=== PATIENT | female | born 1990 | race Hispanic/Latino ===

== ENCOUNTER 2020-10-12 13:41 | Emergency (ER) | payer OTHER ==
--- NOTE | 2020-10-12 15:00 | Emergency Department Report ---
ED General Adult HPI - General Chief complaint: Headache Stated complaint: HEADACHE, BACK PAIN, LEG PAIN Time Seen by Provider: 10/12/20 14:52 Source: patient Mode of arrival: Ambulatory Limitations: No Limitations - History of Present Illness Initial comments: Patient is a 30-year-old female presents emergency room complaints of a right temporal headache that began a week ago. She has associated nausea and sensitivity to light and sounds. She states that she has a history of migraines and this feels similar to previous migraines. She states she is taking ibuprofen and Tylenol with some relief. She does not currently have a primary care provider or neurologist. She states that migraines run in her family. She states that she is also been having lower back pain that radiates to her bilateral legs that began yesterday evening. She denies any fall or injury. She denies any vomiting, fever, diarrhea, abdominal pain, urinary symptoms, num bness, weakness, bowel or bladder incontinence, vision changes, speech disturbance, gait disturbance. She is ambulatory without difficulty. Past medical history of migraines, epilepsy, asthma, bronchitis, arrhythmia. Allergy to Keflex. She states her last menstrual cycle was the end of last month. - Related Data Previous Rx's Medication Instructions Recorded Last Taken Type Butalb/Acetaminophen/Caffeine 1 cap PO Q8HR PRN #12 cap 10/12/20 Unknown Rx [Fioricet 50-300-40 mg CAP] Fluconazole [Diflucan TAB] 100 mg PO QDAY 1 Days #1 tablet 10/12/20 Unknown Rx Nitrofurantoin [place]/M-Cryst 100 mg PO BID 5 Days #10 capsule 10/12/20 Unknown Rx [Macrobid CAP] methOCARBAMOL [Robaxin TAB] 500 mg PO BID PRN #14 tab 10/12/20 Unknown Rx Allergies Allergy/AdvReac Type Severity Reaction Status Date / Time cephalexin [From Keflex] AdvReac Angioedema Verified 10/12/20 14:25 ED Review of Systems ROS: Stated complaint: HEADACHE, BACK PAIN, LEG PAIN Other details as noted in HPI Comment: All other systems reviewed and negative ED Past Medical Hx - Past Medical History Hx Headaches / Migraines: Yes Hx Seizures: Yes Hx Asthma: Yes Additional medical history: bronchitis, arrythmias - Surgical History Additional Surgical History: l tube removed - Social History Smoking Status: Current Every Day Smoker Substance Use Type: None - Medications Home Medications: Home Medications Medication Instructions Recorded Confirmed Last Taken Type Butalb/Acetaminophen/Caffeine 1 cap PO Q8HR PRN #12 cap 10/12/20 Unknown Rx [Fioricet 50-300-40 mg CAP] Fluconazole [Diflucan TAB] 100 mg PO QDAY 1 Days #1 tablet 10/12/20 Unknown Rx Nitrofurantoin [place]/M-Cryst 100 mg PO BID 5 Days #10 capsule 10/12/20 Unknown Rx [Macrobid CAP] methOCARBAMOL [Robaxin TAB] 500 mg PO BID PRN #14 tab 10/12/20 Unknown Rx ED Physical Exam - General Limitations: No Limitations General appearance: alert, in no apparent distress - Head Head exam: Present: atraumatic, normocephalic - Eye Eye exam: Present: normal appearance, PERRL, EOMI. Absent: scleral icterus, conjunctival injection, nystagmus, periorbital swelling, periorbital tenderness - ENT ENT exam: Present: mucous membranes moist - Neck Neck exam: Present: normal inspection, full ROM. Absent: tenderness - Respiratory Respiratory exam: Present: normal lung sounds bilaterally. Absent: respiratory distress, wheezes, rales, rhonchi, stridor, chest wall tenderness, accessory muscle use, decreased breath sounds, prolonged expiratory - Cardiovascular Cardiovascular Exam: Present: regular rate, normal rhythm, normal heart sounds. Absent: systolic murmur, diastolic murmur, rubs, gallop - Back Exam Back exam: Present: normal inspection, full ROM. Absent: CVA tenderness (R), CVA tenderness (L), paraspinal tenderness, vertebral tenderness - Neurological Exam Neurological exam: Present: alert, oriented X3, CN II-XII intact, normal gait. Absent: motor sensory deficit - Expanded Neurological Exam Expanded Patient oriented to: Present: person, place, time Speech: Present: fluid speech Cranial nerves: EOM's Intact: Normal, Gag Reflex: Normal, Tongue Deviation: Normal, Facial Sensation: Normal Cerebellar function: Finger to Nose: Normal, Heel to Hurtado: Normal, Romberg: Normal Sensory exam: Upper Extremity Light Touch: Normal, Upper Extremity Pin Prick: Normal, Upper Extremity Temperature: Normal, UE 2 Point Discrimination: Normal, Lower Extremity Light Touch: Normal, Lower Extremity Pin Prick: Normal, Lower Extremity Temperature: Normal, LE 2 Point Discrimination: Normal Motor strength exam: RUE: 5, LUE: 5, RLE: 5, LLE: 5 Best Eye Response ([place]): (4) open spontaneously Best Motor Response (Radha): (6) obeys commands Best Verbal Response (Radha): (5) oriented [place] Total: 15 - Psychiatric Psychiatric exam: Present: normal affect, normal mood - Skin Skin exam: Present: warm, dry, intact ED Course Vital Signs 10/12/20 10/12/20 10/12/20 14:22 16:39 17:39 Temperature 98.4 F Pulse Rate 70 Respiratory 18 18 18 Rate Blood Pressure 103/62 Blood Pressure [Right] O2 Sat by Pulse 100 Oximetry 10/12/20 18:01 Temperature Pulse Rate 74 Respiratory 18 Rate Blood Pressure Blood Pressure 110/68 [Right] O2 Sat by Pulse 100 Oximetry ED Medical Decision Making - Lab Data Result diagrams: 10/12/20 16:22 10/12/20 16:22 Lab Results 10/12/20 10/12/20 10/12/20 Range/Units 14:51 16:22 16:22 WBC 6.1 (4.5-11.0) K/mm3 RBC 4.48 (3.65-5.03) M/mm3 Hgb 12.6 (10.1-14.3) gm/dl Hct 37.6 (30.3-42.9) % MCV 84 (79-97) fl MCH 28 (28-32) pg MCHC 33 (30-34) % RDW 15.7 H (13.2-15.2) % Plt Count 182 (140-440) K/mm3 Lymph % (Auto) 32.0 (13.4-35.0) % Daggett % (Auto) 5.1 (0.0-7.3) % Eos % (Auto) 1.0 (0.0-4.3) % Baso % (Auto) 0.7 (0.0-1.8) % Lymph # (Auto) 2.0 (1.2-5.4) K/mm3 Daggett # (Auto) 0.3 (0.0-0.8) K/mm3 Eos # (Auto) 0.1 (0.0-0.4) K/mm3 Baso # (Auto) 0.0 (0.0-0.1) K/mm3 Seg Neutrophils % 61.2 (40.0-70.0) % Seg Neutrophils # 3.7 (1.8-7.7) K/mm3 Sodium 138 (137-145) mmol/L Potassium 3.8 (3.6-5.0) mmol/L Chloride 103.6 (98-107) mmol/L Carbon Dioxide 26 (22-30) mmol/L Anion Gap 12 mmol/L BUN 6 L (7-17) mg/dL Creatinine 0.6 (0.6-1.2) mg/dL Estimated GFR > 60 ml/min BUN/Creatinine Ratio 10 % Glucose 86 (65-100) mg/dL Calcium 9.1 (8.4-10.2) mg/dL Total Bilirubin 0.40 (0.1-1.2) mg/dL AST 11 (5-40) units/L ALT 8 (7-56) units/L Alkaline Phosphatase 81 (35-129) units/L Total Protein 6.9 (6.3-8.2) g/dL Albumin 4.1 (3.9-5) g/dL Albumin/Globulin Ratio 1.5 % Lipase 46 (13-60) units/L Urine Color Yellow (Yellow) Urine Turbidity Slightly-cloudy (Clear) Urine pH 5.0 (5.0-7.0) Ur Specific Whitman 1.015 (1.003-1.030) Urine Protein <15 mg/dl (Negative) mg/dL Urine Glucose (UA) Neg (Negative) mg/dL Urine Ketones Tr (Negative) mg/dL Urine Blood Mod (Negative) Urine Nitrite Neg (Negative) Urine Bilirubin Sm (Negative) Urine Ictotest Positive (Negative) Urine Urobilinogen < 2.0 (<2.0) mg/dL Ur Leukocyte Esterase Mod (Negative) Urine WBC (Auto) 17.0 H (0.0-6.0) /HPF Urine RBC (Auto) 10.0 (0.0-6.0) /HPF U Epithel Cells (Auto) 10.0 (0-13.0) /HPF Urine Mucus Few /HPF Urine HCG, Qual Negative (Negative) - Medical Decision Making Patient is a 30-year-old female presents emergency room complaints of a right temporal headache that began a week ago. She has associated nausea and sensitivity to light and sounds. She states that she has a history of migraines and this feels similar to previous migraines. She states she is taking ibuprofen and Tylenol with some relief. She does not currently have a primary care provider or neurologist. She states that migraines run in her family. She states that she is also been having lower back pain that radiates to her bilateral legs that began yesterday evening. She denies any fall or injury. She denies any vomiting, fever, diarrhea, abdominal pain, urinary symptoms, numbness, weakness, bowel or bladder incontinence, vision changes, speech disturbance, gait disturbance. She is ambulatory without difficulty. Past medical history of migraines, epilepsy, asthma, bronchitis, arrhythmia. Allergy to Keflex. She states her last menstrual cycle was the end of last month. Vitals are normal. No abnormality on physical examination as documented in chart, no focal neuro deficits. UA shows evidence of mild UTI. Labs are normal. Patient given p.o. medications while in the emergency department and symptoms improved and she is feeling much better and ready to go home. Discussed all results with patient. Advised patient Please take medication as prescribed. Increase your water intake. Follow-up with primary care doctor. Follow-up with a neurologist. Return to emergency room for new or worsening symptoms. Critical care attestation.: If time is entered above; I have spent that time in minutes in the direct care of this critically ill patient, excluding procedure time. ED Disposition Clinical Impression: Headache Qualifiers: Headache type: unspecified Headache chronicity pattern: acute headache Intractability: not intractable Qualified Code(s): R51.9 - Headache, unspecified Back pain Qualifiers: Back pain location: low back pain Chronicity: acute Back pain laterality: bilateral Sciatica presence: without sciatica Qualified Code(s): M54.5 - Low back pain UTI (urinary tract infection) Qualifiers: Urinary tract infection type: acute cystitis Hematuria presence: without hematuria Qualified Code(s): N30.00 - Acute cystitis without hematuria Disposition: TO HOME OR SELFCARE Is pt being admited?: No Does the pt Need Aspirin: No Condition: Stable Instructions: Migraine Headache, [id number], Acute Back Pain, Adult, Urinary Tract Infection, Adult Additional Instructions: Please take medication as prescribed. Increase your water intake. Follow-up with primary care doctor. Follow-up with a neurologist. Return to emergency room for new or worsening symptoms. Prescriptions: Fluconazole [Diflucan TAB] 100 mg PO QDAY 1 Days #1 tablet Butalb/Acetaminophen/Caffeine [Fioricet 50-300-40 mg CAP] 1 cap PO Q8HR PRN #12 cap PRN Reason: headache Nitrofurantoin [place]gett/M-Cryst [Macrobid CAP] 100 mg PO BID 5 Days #10 capsule methOCARBAMOL [Robaxin TAB] 500 mg PO BID PRN #14 tab PRN Reason: back pain Referrals: KEKE TENORIO MD [Primary Care Provider] - 3-5 Days FAUZIA WINSTON MD [Staff Physician] - 3-5 Days [facility] [Provider Group] - 3-5 Days EMANUEL WOODS MD [Referring] - 3-5 Days Forms: Work/School Release Form(ED) Time of Disposition: 17:49 Print Language: SINHALA
[2020-10-12 15:59] LABS: Bilirubin,Urine SM (Negative); Blood,Urine MOD (Negative); Color,Urine Yellow (Yellow); Mucus,Urine FEW /HPF; Protein,Urine <15 mg/dL mg/dL (Negative); Urobilinogen,Urine < 2.0 mg/dL (<2.0)
[2020-10-12 16:06] LABS: HCG Qualitative,Urine Negative (Negative); Ictotest,Urine Positive (Negative)
[2020-10-12] MEDS ORDERED: METOCLOPRAMIDE 10 MG TAB PO ONE (16:19)
[2020-10-12] MEDS ORDERED: CYCLOBENZAPRINE 10 MG TAB PO ONE (16:19)
[2020-10-12] MEDS ORDERED: diphenhydrAMINE 25 MG CAP PO ONE (16:19)
[2020-10-12] MEDS ORDERED: BUTALB/ACETAMINOPHEN/CAFFEINE TAB PO ONE (16:19)
[2020-10-12 16:47] LABS: Basophils % (Auto) 0.7 % (0.0-1.8); Eosinophils # (Auto) 0.1 K/mm3 (0.0-0.4); Hematocrit 37.6 % (30.3-42.9); Hemoglobin 12.6 gm/dl (10.1-14.3); Mean Corpuscular HGB Conc 33 % (30-34); Mean Corpuscular Volume 84 fl (79-97); Monocytes # (Auto) 0.3 K/mm3 (0.0-0.8); Monocytes % (Auto) 5.1 % (0.0-7.3); Platelet Count 182 K/mm3 (140-440); Red Blood Count 4.48 M/mm3 (3.65-5.03); Red Cell Distribution Width 15.7 % (13.2-15.2)
[2020-10-12 17:09] LABS: Alanine Aminotransferase 8 units/L (7-56); Albumin 4.1 g/dL (3.9-5); Blood Urea Nitrogen 6 mg/dL (7-17); Calcium 9.1 mg/dL (8.4-10.2); Hemolysis Index 9
[2020-10-12 17:11] LABS: BUN/Creatinine Ratio 10
[2020-10-12 18:08] VITALS: BP 110/68
== END 2020-10-12 18:10 | disposition home or self-care (01) ==
LOC: ED 13:41
DX: N39.0 Urinary tract infection, site not specified (principal); M54.9 Dorsalgia, unspecified; R51.9 Headache, unspecified; J45.909 Unspecified asthma, uncomplicated; F17.200 Nicotine dependence, unspecified, uncomplicated; Z98.890 Other specified postprocedural states; Z79.899 Other long term (current) drug therapy; Z88.8 Allergy status to other drugs, medicaments and biological substances; Z86.69 Personal history of other diseases of the nervous system and sense organs
CPT/HCPCS: 36415; 80053; 81001; 81025; 83690; 85025; 87086

== ENCOUNTER 2021-09-18 19:35 | Emergency (ER) | payer OTHER ==
--- NOTE | 2021-09-18 21:25 | XRay Report ---
RIGHT WRIST 3 VIEW(S) INDICATION / CLINICAL INFORMATION: INJURY right wrist pain COMPARISON: None available. FINDINGS: BONES / JOINT(S): No acute fracture or subluxation. No significant arthritis. SOFT TISSUES: No significant abnormality. ADDITIONAL FINDINGS: None. IMPRESSION: 1. No acute findings. Signer Name: Edwin Fry MD Signed: 09/18/2021 9:21 PM Workstation Name: [id number]
[2021-09-18] MEDS ORDERED: IBUPROFEN 600 MG TAB PO ONE (22:56)
[2021-09-18] MEDS ORDERED: ONDANSETRON 4 MG ODT TAB PO ONE (22:56)
[2021-09-18] MEDS ORDERED: ACETAMINOPHEN 500 MG TAB PO ONE (22:56)
[2021-09-18] MEDS ORDERED: traMADol 50 MG TAB PO ONE (22:56)
--- NOTE | 2021-09-18 23:13 | Emergency Department Report ---
ED Upper Extremity Inj HPI - General Chief Complaint: Extremity Injury, Upper Stated Complaint: RT HAND PAIN Source: patient Mode of arrival: Ambulatory Limitations: No Limitations - History of Present Illness Initial Comments: Patient is a 31-year-old female with a history of asthma, seizures, migraine headaches, arrhythmias and chronic bronchitis who presents to the ED with complaint of acute onset persistent right wrist pain for the last 4 days after a heavy dog pulled her right wrist that was on a leash for the dog. Patient states that she heard a "pop" on the right wrist and that since then the pain has been worsening progressively. Patient states that she has been taking ibuprofen and Tylenol for pain with no relief. Patient states that she is unable perform any active range of motion of the right wrist because of worsening pain. Patient denies fall, traumatic injury, numbness and tingling or weakness of right hand, dizziness, syncope, neck pain, chest pain or shortness of breath. MD Complaint: Injury to:: right (Wrist pain), wrist (Right wrist pain) -: Sudden, days(s) (4) Other Extremity Injury: Wrist: Right (Pain) Other Injuries: none Place: work Severity scale (0 -10): 8 Improves With: rest Worsens With: movement of extremity Context: injury (Right hand pulled by a dog on a leash 4 days ago) Associated Symptoms: denies other symptoms, heard/felt popping sensat. denies: weakness, numbness, neck pain, suspects foreign body, nausea/vomiting Treatments Prior to Arrival: NSAIDS - Related Data Previous Rx's Medication Instructions Recorded Last Taken Type Butalb/Acetaminophen/Caffeine 1 cap PO Q8HR PRN #12 cap 10/12/20 Unknown Rx [Fioricet 50-300-40 mg CAP] Fluconazole [Diflucan TAB] 100 mg PO QDAY 1 Days #1 tablet 10/12/20 Unknown Rx Nitrofurantoin [place]/M-Cryst 100 mg PO BID 5 Days #10 capsule 10/12/20 Unknown Rx [Macrobid CAP] Ibuprofen [Motrin] 600 mg PO Q8H PRN #30 tablet 09/18/21 Unknown Rx methOCARBAMOL [Robaxin TAB] 500 mg PO BID PRN #20 tab 09/18/21 Unknown Rx Allergies Allergy/AdvReac Type Severity Reaction Status Date / Time cephalexin [From Keflex] AdvReac Angioedema Verified 10/12/20 14:25 ED Review of Systems ROS: Stated complaint: RT HAND PAIN Other details as noted in HPI Constitutional: denies: chills, fever Eyes: denies: eye pain, eye discharge, vision change ENT: denies: ear pain, throat pain Respiratory: denies: cough, shortness of breath, wheezing Cardiovascular: denies: chest pain, palpitations Endocrine: no symptoms reported Gastrointestinal: denies: abdominal pain, nausea, diarrhea Genitourinary: denies: urgency, dysuria, discharge Musculoskeletal: arthralgia (Right wrist pain). denies: back pain, joint swelling Skin: denies: rash, lesions Neurological: denies: headache, weakness, paresthesias Psychiatric: denies: anxiety, depression Hematological/Lymphatic: denies: easy bleeding, easy bruising ED Past Medical Hx - Past Medical History Hx Headaches / Migraines: Yes Hx Seizures: Yes Hx Asthma: Yes Additional medical history: bronchitis, arrythmias - Surgical History Additional Surgical History: l tube removed - Social History Smoking Status: Current Every Day Smoker Substance Use Type: None - Medications Home Medications: Home Medications Medication Instructions Recorded Confirmed Last Taken Type Butalb/Acetaminophen/Caffeine 1 cap PO Q8HR PRN #12 cap 10/12/20 Unknown Rx [Fioricet 50-300-40 mg CAP] Fluconazole [Diflucan TAB] 100 mg PO QDAY 1 Days #1 tablet 10/12/20 Unknown Rx Nitrofurantoin [place]/M-Cryst 100 mg PO BID 5 Days #10 capsule 10/12/20 Unknown Rx [Macrobid CAP] Ibuprofen [Motrin] 600 mg PO Q8H PRN #30 tablet 09/18/21 Unknown Rx methOCARBAMOL [Robaxin TAB] 500 mg PO BID PRN #20 tab 09/18/21 Unknown Rx ED Physical Exam - General Limitations: No Limitations General appearance: alert, in no apparent distress - Head Head exam: Present: atraumatic, normocephalic, normal inspection - Eye Eye exam: Present: normal appearance, PERRL, EOMI. Absent: scleral icterus, nystagmus, periorbital swelling - ENT ENT exam: Present: normal exam, normal orophraynx, mucous membranes moist, TM's normal bilaterally, normal external ear exam - Neck Neck exam: Present: normal inspection, full ROM. Absent: tenderness - Respiratory Respiratory exam: Present: normal lung sounds bilaterally. Absent: respiratory distress, wheezes, rales, rhonchi, chest wall tenderness, accessory muscle use, decreased breath sounds, prolonged expiratory - Cardiovascular Cardiovascular Exam: Present: regular rate, normal rhythm, normal heart sounds. Absent: systolic murmur, diastolic murmur, rubs, gallop - GI/Abdominal GI/Abdominal exam: Present: soft, normal bowel sounds. Absent: tenderness, guarding, rigid, hyperactive bowel sounds - Extremities Exam Extremities exam: Present: normal inspection, tenderness (Palpable right wrist tenderness with limited range of motion due to pain), normal capillary refill. Absent: full ROM (Limited range of motion of right wrist due to pain), pedal edema, joint swelling, calf tenderness - Back Exam Back exam: Present: normal inspection, full ROM. Absent: tenderness, CVA tenderness (R), CVA tenderness (L), muscle spasm, paraspinal tenderness - Neurological Exam Neurological exam: Present: alert, oriented X3, CN II-XII intact, normal gait, reflexes normal - Psychiatric Psychiatric exam: Present: normal affect, normal mood - Skin Skin exam: Present: warm, dry, intact, normal color. Absent: rash ED Course Vital Signs 09/18/21 20:06 Temperature 98.4 F Pulse Rate 69 Respiratory 18 Rate Blood Pressure 101/59 O2 Sat by Pulse 100 Oximetry ED Medical Decision Making - Radiology Data Radiology results: report reviewed, image reviewed [facility] [address] [place] [address] XRay Report Signed Patient: KATI STEVE MR#: [id number] : 1990 Acct:[id number] Age/Sex: 31 / F ADM Date: 09/18/21 Loc: ED Attending Dr: Ordering Physician: ED MD JUDI Date of Service: 09/18/21 Procedure(s): XR wrist 3+V RT Accession Number(s): [id number] cc: ED MD JUDI Fluoro Time In Minutes: RIGHT WRIST 3 VIEW(S) INDICATION / CLINICAL INFORMATION: INJURY right wrist pain COMPARISON: None available. FINDINGS: BONES / JOINT(S): No acute fracture or subluxation. No significant arthritis. SOFT TISSUES: No significant abnormality. ADDITIONAL FINDINGS: None. IMPRESSION: 1. No acute findings. Signer Name: Edwin Fry MD Signed: 09/18/2021 9:21 PM Workstation Name: [id number] Transcribed By: TL Dictated By: Edwin Fry MD Electronically Authenticated By: Edwin Fry MD Signed Date/Time: 09/18/212120 DD/ 19 TD/TT: - Medical Decision Making This is a 31-year-old female with a history of asthma, seizures, migraine headaches, arrhythmias and chronic bronchitis who presents to the ED with complaint of acute onset persistent right wrist pain for the last 4 days after a heavy dog pulled her right wrist that was on a leash for the dog. Patient states that she heard a "pop" on the right wrist and that since then the pain has been worsening progressively. Patient states that she has been taking ibuprofen and Tylenol for pain with no relief. Patient states that she is unable perform any active range of motion of the right wrist because of worsening pain. In the ED, patient is alert and oriented x3 and is not in any distress. Patient however appears to be in pain. Patient was treated for pain in the ED with Tylenol and ibuprofen. Right wrist x-ray showed no acute fractures or subluxations. The right wrist was splinted with a Velcro splint. On reevaluation, patient's pain is moderately controlled with with medications. Patient was therefore discharged home on medications for pain and advised to follow-up with her primary care physician in 7 to 10 days for reevaluation. Patient was advised return to the ED immediately if symptoms get worse. - Differential Diagnosis Wrist fracture; wrist sprain; muscle strain; Critical care attestation.: If time is entered above; I have spent that time in minutes in the direct care of this critically ill patient, excluding procedure time. ED Disposition Clinical Impression: Strain of muscle of right hand Sprain of right wrist Qualifiers: Encounter type: initial encounter Qualified Code(s): S63.501A - Unspecified sprain of right wrist, initial encounter Disposition: HOME / SELF CARE / HOMELESS Is pt being admited?: No Does the pt Need Aspirin: No Condition: Stable Instructions: Muscle Strain, [id number], Wrist Sprain, Adult Additional Instructions: The right wrist x-ray showed no acute fractures or subluxations. Therefore take medication with food, drink plenty of fluids and follow-up with your primary care physician in 7 to 10 days for reevaluation. Return to the ED immediately if symptoms get worse. Prescriptions: Ibuprofen [Motrin] 600 mg PO Q8H PRN #30 tablet PRN Reason: Pain methOCARBAMOL [Robaxin TAB] 500 mg PO BID PRN #20 tab PRN Reason: Muscle Spasm Referrals: [facility] [Provider Group] - 7-10 days Forms: Work/School Release Form(ED) Time of Disposition: 23:15 Print Language: SURINAMESE
[2021-09-18 23:55] VITALS: BP 110/63
== END 2021-09-18 23:55 | disposition home or self-care (01) ==
LOC: ED 19:35
DX: S66.911A Strain of unspecified muscle, fascia and tendon at wrist and hand level, right hand, initial encounter (principal); R56.9 Unspecified convulsions; J45.909 Unspecified asthma, uncomplicated; F17.200 Nicotine dependence, unspecified, uncomplicated; Z91.09 Other allergy status, other than to drugs and biological substances; X58.XXXA Exposure to other specified factors, initial encounter; Y93.89 Activity, other specified; Y92.89 Other specified places as the place of occurrence of the external cause; Y99.8 Other external cause status
CPT/HCPCS: 99283

== ENCOUNTER 2021-11-10 23:46 | Emergency (ER) | payer OTHER ==
[2021-11-10 23:52] VITALS: BP 134/87
[2021-11-11] MEDS ORDERED: ACETAMINOPHEN 500 MG TAB PO ONE (01:43)
[2021-11-11] MEDS ORDERED: IBUPROFEN 600 MG TAB PO ONE (01:43)
[2021-11-11] MEDS ORDERED: diazePAM 5 MG TAB PO ONE (01:43)
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
== END 2021-11-11 03:58 | disposition home or self-care (01) ==
LOC: ED 23:46
DX: M62.830 Muscle spasm of back (principal); M62.838 Other muscle spasm; G43.909 Migraine, unspecified, not intractable, without status migrainosus; R56.9 Unspecified convulsions; J45.909 Unspecified asthma, uncomplicated; Z98.890 Other specified postprocedural states; F17.290 Nicotine dependence, other tobacco product, uncomplicated; Z88.1 Allergy status to other antibiotic agents; V89.2XXA Person injured in unspecified motor-vehicle accident, traffic, initial encounter; Y93.89 Activity, other specified; Y92.89 Other specified places as the place of occurrence of the external cause; Y99.8 Other external cause status
CPT/HCPCS: 72100; 72125; 99284

== ENCOUNTER 2021-11-26 21:34 | Emergency (ER) | payer OTHER | END 2021-11-27 03:30 | disposition left against medical advice (07) | LOC: ED 21:34 | DX: R19.09 Other intra-abdominal and pelvic swelling, mass and lump (principal); Z53.21 Procedure and treatment not carried out due to patient leaving prior to being seen by health care provider ==